=== PATIENT | male | born 1980 | race Two or more races ===

== ENCOUNTER 2019-08-22 16:42 | Inpatient (IN) | payer MEDICAID ==
[~2019-08-22] VITALS: Ht 167.6 cm; Wt 59.1 kg
[2019-08-22 17:50] LABS: BASOPHILS % (AUTO) 1.1 % (0.0-2.0); EOSINOPHILS % (AUTO) 10.5 % (1.0-6.0); HEMATOCRIT 41.1 % (41-53); HEMOGLOBIN 14.1 g/dL (13.5-17.5); LYMPHOCYTES % (AUTO) 38.2 % (22.0-44.0); MEAN CORPUSCULAR HEMOGLOBIN 35.6 pg (26.0-34.0); MEAN CORPUSCULAR HGB CONC 34.3 G/dL (31.0-37.0); MEAN CORPUSCULAR VOLUME 104 fL (80-100); MONOCYTES # (AUTO) 0.4 K/uL (0.1-1.0); MONOCYTES % (AUTO) 8.7 % (2.0-9.0); NEUTROPHILS # (AUTO) 2.1 K/uL (1.8-7.7); NEUTROPHILS % (AUTO) 41.5 % (40.0-70.0); PLATELET COUNT (AUTO) 232 K/uL (150-450); RED BLOOD CELL COUNT(AUTO) 3.96 MIL/uL (4.50-5.90); RED CELL DISTRIBUTION WIDTH 13.7 % (11.5-14.5)
[2019-08-22] MEDS ORDERED: LORazepam 2 MG/ML VIAL ONE (18:01)
[2019-08-22] MEDS ORDERED: DiphenhydrAMINE HCL 50 MG/ML VIAL ONE (18:01)
[2019-08-22] MEDS ORDERED: HALOPERIDOL LACTATE 5 MG/ML VIAL ONE (18:02)
[2019-08-22 18:04] LABS: ANION GAP 15 mmol/L (8-16); CALCIUM, TOTAL 8.2 mg/dL (8.8-10.5); CARBON DIOXIDE 23 mmol/L (22-29); CHLORIDE 106 mmol/L (98-107); CREATININE 0.76 mg/dL (0.60-1.30); GLOMERULAR FILTR. RATE CALC > 60 mL/min (>60); GLUCOSE,RANDOM 105 mg/dL (70-110); POTASSIUM 3.5 mmol/L (3.5-5.1); SODIUM SERUM 144 mmol/L (136-145); UREA NITROGEN, BLOOD 8 mg/dL (7-18)
[2019-08-22 18:09] LABS: ALANINE AMINOTRANSFERASE 15 U/L (12-78); ALBUMIN 3.6 g/dL (3.4-5.0); ALKALINE PHOSPHATASE 69 U/L (46-116); ASPARTATE AMINOTRANSFERASE 19 U/L (15-37); BILIRUBIN,TOTAL 0.5 mg/dL (0.1-1.0); TOTAL PROTEIN, SERUM 6.5 g/dL (6.4-8.2)
[2019-08-22] MEDS ORDERED: DiphenhydrAMINE HCL 50 MG/ML VIAL IM ONE (18:15)
[2019-08-22] MEDS ORDERED: LORazepam 2 MG/ML VIAL IM ONE (18:15)
[2019-08-22] MEDS ORDERED: HALOPERIDOL LACTATE 5 MG/ML VIAL IM ONE (18:15)
[2019-08-22 18:18] LABS: AMPHET/METH SCREEN,URINE NEGATIVE (NEGATIVE); BARBITURATE SCREEN, URINE NEGATIVE (NEGATIVE); BENZODIAZEPINES SCREEN,URINE NEGATIVE (NEGATIVE); CANNABINOID SCREEN,URINE POSITIVE (NEGATIVE); COCAINE SCREEN,URINE NEGATIVE (NEGATIVE); METHADONE SCREEN, URINE NEGATIVE (NEGATIVE); OPIATE SCREEN,URINE NEGATIVE (NEGATIVE)
[2019-08-22 18:19] LABS: PHENCYCLIDINE SCREEN,URINE NEGATIVE (NEGATIVE)
[2019-08-23 03:10] LABS: CHOL/HDL RATIO 3.2 (4.2-7.3); CHOLESTEROL 171 mg/dL (131-200); HDL CHOLESTEROL 54 mg/dL (40-60); LDL CHOL (CALC.) 82 mg/dL (0-130); TRIGLYCERIDES 173 mg/dL (15-150)
[2019-08-23] MEDS ORDERED: ALBUTEROL SULFATE HFA 90 MCG/PUFF 8 GM INHALER IH PRN (08:00)
[2019-08-23] MEDS ORDERED: MAG HYDROX/AL HYDROX/SIMETH ES 30 ML SUSPENSION UDCUP PO PRN (08:00)
[2019-08-23] MEDS ORDERED: ACETAMINOPHEN 325 MG TABLET PO PRN (08:00)
[2019-08-23] MEDS ORDERED: CloNIDine HCL 0.1 MG TABLET PO PRN (08:00)
[2019-08-23] MEDS ORDERED: IBUPROFEN 400 MG TABLET PO PRN (08:00)
[2019-08-23] MEDS ORDERED: GuaiFENesin/D-METHORPHAN [SUGAR-FREE] 200-20MG/10 ML SYRUP UDCUP PO PRN (08:00)
[2019-08-23] MEDS ORDERED: MAGNESIUM HYDROXIDE SUSPENSION 30 ML UDCUP PO PRN (08:00)
[2019-08-23] MEDS ORDERED: PETROLATUM,WHITE 28 GM JELLY TP PRN (08:00)
[2019-08-23] MEDS ORDERED: DOCUSATE SODIUM 100 MG CAPSULE PO PRN (08:00)
[2019-08-23] MEDS ORDERED: NICOTINE 14 MG/24 HOUR PATCH TD PRN (08:00)
[2019-08-23] MEDS ORDERED: ONDANSETRON HCL 4 MG TABLET PO PRN (08:00)
[2019-08-23] MEDS ORDERED: LOPERAMIDE HCL 2 MG CAPSULE PO PRN (08:00)
[2019-08-23] MEDS: LORazepam 2 MG TABLET PO PRN ×2 (10:16→18:29)
[2019-08-23] MEDS: HALOPERIDOL 5 MG TABLET PO PRN ×2 (10:16→18:29)
[2019-08-23 15:30] VITALS: BP 126/90
[2019-08-23 21:12] VITALS: BP 103/52
[2019-08-23 21:15] VITALS: BP 103/52
[2019-08-23 21:45] VITALS: BP 110/56
[2019-08-23 23:14] VITALS: BP 118/82
[2019-08-24 04:39] VITALS: BP 116/74
[2019-08-24 08:09] VITALS: BP 121/84
[2019-08-24] MEDS: LORazepam 2 MG TABLET PO PRN ×4 (08:29→20:34)
[2019-08-24] MEDS: HALOPERIDOL 5 MG TABLET PO PRN (09:39)
[2019-08-24] MEDS ORDERED: PROMETHAZINE HCL 25 MG TABLET PO PRN (12:00)
[2019-08-24] MEDS ORDERED: CYANOCOBALAMIN 1,000 MCG/ML VIAL IM ONE (12:00)
[2019-08-24] MEDS ORDERED: OLANZapine 5 MG RAPDIS TABLET PO PRN (12:00)
[2019-08-24] MEDS ORDERED: ACETAMINOPHEN 325 MG TABLET PO PRN (12:00)
[2019-08-24] MEDS ORDERED: LOPERAMIDE HCL 2 MG CAPSULE PO PRN (12:00)
[2019-08-24] MEDS ORDERED: GuaiFENesin/D-METHORPHAN [SUGAR-FREE] 200-20MG/10 ML SYRUP UDCUP PO PRN (12:00)
[2019-08-24] MEDS ORDERED: TUBERCULIN, PURIFIED PROTEIN DERIVATIVE 5 TU/0.1 ML SYRINGE ID ONE (12:00)
[2019-08-24 16:00] VITALS: BP 119/71
[2019-08-24 16:07] VITALS: BP 119/71
[2019-08-24] MEDS: THIAMINE 100 MG TABLET PO SCH (16:09)
[2019-08-24] MEDS: BusPIRone HCL 5 MG TABLET PO SCH (16:56)
[2019-08-24] MEDS: HydrOXYzine PAMOATE 50 MG CAPSULE PO PRN (19:11)
[2019-08-24] MEDS: ZOLPIDEM TARTRATE 10 MG TABLET PO PRN (20:34)
[2019-08-24] MEDS: DIVALPROEX SODIUM 500 MG ER TABLET PO SCH (20:34)
[2019-08-24] MEDS ORDERED: OLANZapine 10 MG RAPDIS TABLET PO SCH (21:00)
[2019-08-25 08:20] VITALS: BP 121/76
[2019-08-25 08:30] VITALS: BP 121/76
[2019-08-25] MEDS: LORazepam 2 MG TABLET PO SCH ×4 (08:47→20:17)
[2019-08-25] MEDS: BusPIRone HCL 5 MG TABLET PO SCH ×3 (08:47→16:09)
[2019-08-25] MEDS: MULTIVITAMINS WITH MINERALS, THERAPEUTIC TABLET PO SCH (08:47)
[2019-08-25] MEDS: THIAMINE 100 MG TABLET PO SCH ×2 (08:48→16:03)
[2019-08-25] MEDS: FOLIC ACID 1 MG TABLET PO SCH (08:48)
[2019-08-25] MEDS ORDERED: FLUoxetine HCL 10 MG CAPSULE PO SCH (09:00)
[2019-08-25 09:34] LABS: CHOL/HDL RATIO 3.5 (4.2-7.3); FREE T4 (FREE THYROXINE) 1.18 ng/dL (0.76-1.46); THYROID STIMULATING HORMONE 1.84 uIU/mL (0.36-3.74)
[2019-08-25 09:36] LABS: HEMOGLOBIN A1C 5.2 % (3.8-5.6)
[2019-08-25] MEDS: LORazepam 2 MG TABLET PO PRN ×2 (11:23→17:30)
[2019-08-25] MEDS: HydrOXYzine PAMOATE 50 MG CAPSULE PO PRN (16:04)
[2019-08-25 16:37] VITALS: BP 115/84
[2019-08-25 16:51] VITALS: BP 115/84
[2019-08-25] MEDS: ZOLPIDEM TARTRATE 10 MG TABLET PO PRN (20:17)
[2019-08-25] MEDS: DIVALPROEX SODIUM 500 MG ER TABLET PO SCH (20:17)
[2019-08-25] MEDS ORDERED: OLANZapine 5 MG RAPDIS TABLET PO SCH (21:00)
[2019-08-26] MEDS: BusPIRone HCL 5 MG TABLET PO SCH ×3 (09:18→16:59)
[2019-08-26] MEDS: LORazepam 2 MG TABLET PO SCH ×4 (09:19→21:09)
[2019-08-26] MEDS: FOLIC ACID 1 MG TABLET PO SCH (09:20)
[2019-08-26] MEDS: MULTIVITAMINS WITH MINERALS, THERAPEUTIC TABLET PO SCH (09:20)
[2019-08-26] MEDS: THIAMINE 100 MG TABLET PO SCH ×2 (09:39→16:59)
[2019-08-26] MEDS: LORazepam 2 MG TABLET PO PRN (10:16)
[2019-08-26] MEDS ORDERED: BUSP5TAB20 PO (13:31)
[2019-08-26] MEDS ORDERED: OLAN5TAB30 PO (13:31)
[2019-08-26] MEDS ORDERED: NALT50TA PO (13:31)
[2019-08-26] MEDS ORDERED: DIVA500T52 PO (13:31)
[2019-08-26 16:06] VITALS: BP 111/79
[2019-08-26 20:03] VITALS: BP 111/79
[2019-08-26] MEDS ORDERED: OLANZapine 10 MG RAPDIS TABLET PO SCH (21:00)
[2019-08-26] MEDS: DIVALPROEX SODIUM 500 MG ER TABLET PO SCH (21:09)
[2019-08-27 01:21] VITALS: BP 118/78
[2019-08-27] MEDS ORDERED: LORazepam 1 MG TABLET PO PRN (07:00)
[2019-08-27 07:23] VITALS: BP 118/78
[2019-08-27 07:24] VITALS: BP_SYST 118; BP_SYST 121; BP_DIAS 78; BP_DIAS 83
[2019-08-27] MEDS: THIAMINE 100 MG TABLET PO SCH (07:57)
[2019-08-27] MEDS: FOLIC ACID 1 MG TABLET PO SCH (07:57)
[2019-08-27] MEDS: BusPIRone HCL 5 MG TABLET PO SCH (07:57)
[2019-08-27] MEDS: MULTIVITAMINS WITH MINERALS, THERAPEUTIC TABLET PO SCH (07:57)
[2019-08-27 08:00] VITALS: BP 123/93
[2019-08-27] MEDS ORDERED: LORazepam 1 MG TABLET PO SCH (09:00)
[2019-08-27] MEDS ORDERED: NALTREXONE HCL 50 MG TABLET PO SCH (09:00)
[2019-08-27] MEDS ORDERED: LOPERAMIDE HCL 2 MG CAPSULE PO PRN (12:00)
[2019-08-28] MEDS ORDERED: LORazepam 1 MG TABLET PO PRN (07:00)
== END 2019-08-27 12:20 | disposition home or self-care (01) | DRG 750 ==
LOC: EMS 16:42 → B3A 08-23 11:00 → UNDOADMIN 08-23 11:40 → AHU 08-23 11:40 → B3A 08-23 14:17 → AHU 08-23 14:19 → B3A 08-23 14:19 → AHU 08-23 14:21 → B3A 08-23 14:21 → AHU 08-23 14:41 → B3A 08-23 14:41
PROVIDERS: ADMIT Psychiatry & Neurology Child & Adolescent Psychiatry; ATTEND Psychiatry & Neurology Psychiatry
DX: F25.1 Schizoaffective disorder, depressive type (principal); R45.850 Homicidal ideations; F10.10 Alcohol abuse, uncomplicated; F32.9 Major depressive disorder, single episode, unspecified; F43.10 Post-traumatic stress disorder, unspecified; G44.209 Tension-type headache, unspecified, not intractable; Y90.9 Presence of alcohol in blood, level not specified; F19.10 Other psychoactive substance abuse, uncomplicated; Z91.5 Personal history of self-harm; F17.200 Nicotine dependence, unspecified, uncomplicated; Z91.19 Patient's noncompliance with other medical treatment and regimen
CPT/HCPCS: 83036; 84439; 84443; 86592; 99291; G0480; J1200; J1630; J2060; J3420

== ENCOUNTER 2021-01-18 13:35 | Emergency (ER) | payer MEDICAID ==
[~2021-01-18 13:35] MED LIST: BUSP5TAB20 PO; DIVA-80 PO; NALT50TA PO; OLAN5TAB30 PO
== END 2021-01-18 15:12 | disposition left against medical advice (07) ==
LOC: EMS 13:35
DX: F41.9 Anxiety disorder, unspecified (principal); Z53.21 Procedure and treatment not carried out due to patient leaving prior to being seen by health care provider